=== PATIENT | female | born 1965 | race African-American/Black ===

== ENCOUNTER 2023-11-18 17:07 | Emergency (ER) | payer BC ==
[2023-11-18] MEDS ORDERED: Acetaminophen 500 MG TAB ONE (17:30)
[2023-11-18 18:17] LABS: Influenza A by NAA Not Detected (NotDetected); Influenza B by NAA Not Detected (NotDetected); SARS-CoV-2 NAA Rapid Test DETECTED (NotDetected)
== END 2023-11-18 18:35 | disposition home or self-care (01) ==
LOC: NAV ERS 17:07
DX: U07.1 COVID-19 (principal); I10 Essential (primary) hypertension; G40.909 Epilepsy, unspecified, not intractable, without status epilepticus; E78.00 Pure hypercholesterolemia, unspecified; Z79.899 Other long term (current) drug therapy; Z79.82 Long term (current) use of aspirin
CPT/HCPCS: 87081; 87430; 99283